=== PATIENT | male | born 1955 | race Caucasian/White ===

== ENCOUNTER 2018-12-28 13:06 | Inpatient (IN) | payer BC, SELFPAY ==
[2018-12-28 13:30] LABS: #Lymphocytes 0.5 thou/uL (1.20-3.40); #Monocytes 0.2 thou/uL (0.11-0.59); #Neutrophils 6.9 thou/uL (1.40-6.50); %Basophils 0.5 % (0.0-1.0); %Eosinophils 0.3 % (0.0-10.0); %Lymphocytes 5.9 % (21.0-51.0); %Monocytes 3.1 % (0.0-10.0); %Neutrophils 90.3 % (42.0-75.0); Hemoglobin 16.5 g/dL (14.0-18.0); Mean Corpuscular HGB CONC 34.6 g/dL (32.0-36.0); Mean Corpuscular Hemoglobin 32.2 pg (27.0-31.0); Mean Corpuscular Volume 92.8 fL (78.0-98.0); Mean Platelet Volume 9.5 fL (7.4-10.4); Platelet Count 137 thou/uL (130-400); RBC Distribution Width 12.6 % (11.5-14.5); Red Blood Cell (RBC) Count 5.12 mill/uL (4.70-6.10); White Blood Cell (WBC) Count 7.6 thou/uL (4.8-10.8)
[2018-12-28 13:39] LABS: PTT 26.3 SEC (22.9-36.1); Prothrombin Time 13.6 SEC (12.0-14.7)
[2018-12-28 13:47] LABS: ALT (SGPT) 29 U/L (8-55); AST (SGOT) 21 U/L (5-34); Albumin 4.4 g/dL (3.4-4.8); Alkaline Phosphatase 103 U/L (40-150); Anion Gap 17 mmol/L (10-20); BUN (Urea Nitrogen) 12 mg/dL (8.4-25.7); CK (CPK) 135 U/L (30-200); Calc. Creatinine Clearance 0 mL/min (70-130); Calcium 9.8 mg/dL (7.8-10.44); Carbon Dioxide 22 mmol/L (23-31); Chloride 101 mmol/L (98-107); Estimated GFR-MDRD 80; Globulin 2.9 g/dL (2.4-3.5); Glucose 152 mg/dL (80-115); Potassium 4.1 mmol/L (3.5-5.1); Protein, Total 7.3 g/dL (5.8-8.1); Sodium 136 mmol/L (136-145)
--- NOTE | 2018-12-28 14:10 | PDOC.FPRHP ---
- History of Present Illness Chief Complaint: right sided weakness and left facial paresthesias History of Present Illness: The patient is a 63YOM with no significant PMH who presented to the ED via EMS with a CC of right-sided weakness that began around 00:00 today. Per the patient , he awoke from his sleep and states that he "didn't feel quite right." He says that he could not move well and felt numb on his left side but drifted back off to sleep. Upon waking up later that morning he reported persistent weakness, worse on his right side and was unable to get out of bed so he decided to call 911 around 0830. The ambulance arrived around 0900 and took him straight to the [place] ED. In [place], the patient was given full dose ASA & had a CTA of his head and neck that showed what appeared to be a chronic left ICA occlusion. He was then transferred to the [facility] ED for further evaluation and treatment for a suspected acute CVA. Per the patient he has never had similar symptoms prior to this episode today. He endorsed a slight headache and decreased vision in his left eye that he stated had improved since his initial onset of symptoms. He denied any associated dysarthria, nausea, decreased hearing or chest pain. ED Course: The patient was given full dose ASA in the [place] ED. - Allergies/Adverse Reactions Allergies Allergy/AdvReac Type Severity Reaction Status Date / Time No Known Allergies Allergy Verified 12/28/18 17:34 - Home Medications Medication Instructions Recorded Confirmed Type Allopurinol 300 mg PO DAILY 12/28/18 12/28/18 History Venlafaxine HCl [Venlafaxine HCl 150 mg PO DAILY 12/28/18 12/28/18 History ER] - History PMHx: gout & depression PSHx: abdominal hernia repair FHx: Mother has an ischemic CVA @ age 69. Social: No h/o tobacco or drug use. Endorses drinking about 6 beers/day on average. Last drink was last night. Lives at home with and daughter. - Review of Systems General: denies: fever/chills, weight/appetite/sleep changes Eyes: reports: vision changes. denies: eye pain ENT: denies: nasal congestion, rhinorrhea Respiratory: denies: cough, shortness of breath Cardiovascular: denies: chest pain, palpitation Gastrointestinal: denies: nausea, vomiting, diarrhea, constipation, abdominal pain Genitourinary: denies: incontinence, dysuria Skin: denies: rashes, lesions Musculoskeletal: denies: pain, swelling Neurological: reports: numbness, weakness Psychological: reports: depression. denies: anxiety - Vital signs BP: 155/99 HR: 76 RR: 17 Tmax: 98.6F Pox: 96% on RA Wt: 108 kg - Physical Exam Constitutional: NAD, awake, alert and oriented, well developed HEENT: normocephalic and atraumatic, PERRLA, EOMI, grossly normal vision, grossly normal hearing, MMM, oropharynx clear Neck: supple, FROM Heart: RRR, normal S1/S2, pulses present, no edema Lungs: CTAB, no respiratory distress, good air movement, no rales/rhonchi, no wheezing Abdomen: soft, non-tender, bowel sounds present, no masses/distention Musculoskeletal: normal structure, other (decreased ROM in R extremities) Neurological: other (normal sensation and proprioception intact; unable to perform [id number] on R 2/2 ~3/5 stregth in extremities but 4/5 with hand gamemaster and foot extension on the R with 5/5 strength on the left throughout; no facial droop or dysarthria noted but decreased sensation to light touch in left V2 distribution with intact sensation otherwise throughout.) Skin: no rash/lesions, good turgor, no jaundice Heme/Lymphatic: no unusual bruising or bleeding, no purpura Psychiatric: normal mood and affect, good judgment and insight, intact recent and remote memory FMR H&P: Results - Labs Result Diagrams: 12/28/18 13:15 12/28/18 13:15 Lab results: WBC 7.6 thou/uL (4.8-10.8) 12/28/18 13:15 Hgb 16.5 g/dL (14.0-18.0) 12/28/18 13:15 Hct 47.5 % (42.0-52.0) 12/28/18 13:15 MCV 92.8 fL (78.0-98.0) 12/28/18 13:15 Plt Count 137 thou/uL (130-400) 12/28/18 13:15 Neutrophils % 90.3 % (42.0-75.0) H 12/28/18 13:15 Sodium 136 mmol/L (136-145) 12/28/18 13:15 Potassium 4.1 mmol/L (3.5-5.1) 12/28/18 13:15 Chloride 101 mmol/L (98-107) 12/28/18 13:15 Carbon Dioxide 22 mmol/L (23-31) L 12/28/18 13:15 BUN 12 mg/dL (8.4-25.7) 12/28/18 13:15 Creatinine 0.96 mg/dL (0.7-1.3) 12/28/18 13:15 Glucose 152 mg/dL (80-115) H 12/28/18 13:15 Calcium 9.8 mg/dL (7.8-10.44) 12/28/18 13:15 Total Bilirubin 1.0 mg/dL (0.2-1.2) 12/28/18 13:15 AST 21 U/L (5-34) 12/28/18 13:15 ALT 29 U/L (8-55) 12/28/18 13:15 Alkaline Phosphatase 103 U/L (40-150) 12/28/18 13:15 Creatine Kinase 135 U/L (30-200) 12/28/18 13:15 Serum Total Protein 7.3 g/dL (5.8-8.1) 12/28/18 13:15 Albumin 4.4 g/dL (3.4-4.8) 12/28/18 13:15 - Radiology Interpretation CT scan - head Status: report reviewed by me (CT brain: tiny R basal ganglia with area of infarction seen; tiny hyperdensity in the R & L MCAs (clot vs. calcifications)) Other Additional comment: CTA head & neck: Proximal L ICA occlusion FMR H&P: A/P - Problem List (1) Ischemic cerebrovascular accident (CVA) Current Visit: Yes Status: Acute Code(s): I63.9 - CEREBRAL INFARCTION, UNSPECIFIED (2) HTN (hypertension) Current Visit: Yes Status: Acute Code(s): I10 - ESSENTIAL (PRIMARY) HYPERTENSION (3) Depression Current Visit: Yes Status: Acute Code(s): F32.9 - MAJOR DEPRESSIVE DISORDER , SINGLE EPISODE, UNSPECIFIED (4) Gout Current Visit: Yes Status: Acute Code(s): M10.9 - GOUT, UNSPECIFIED - Plan 63YOM with no significant PMH who presented to the ED as a transfer from [place] after presenting there with acute onset R-sided weakness that began at ~00:00 on the date of presentation. Suspected acute ischemic CVA: - Per the ER physician's handoff, patient's CT angio of the head and neck at [place] showed what appeared to be a chronic L ICA occlusion which is more than likely the source of the patient's symptoms. Unfortunately, patient was outside window for TPA but was given full dose ASA at outside ED. - Will proceed with routine ischemic CVA care and allow permissive HTN for first 24 hours from onset of symptoms. Will have PRN labetalol and hydralazine for SBP >220. Will continue to monitor pressures closely. - Will obtain an MRI & consult neurology in the AM. ER touched based with Neurosurgery who stated no need for any surgical intervention. Will therefore optimize medical therapy. - Will order a TTE as well to assess for cardiac etiology of possible CVA as well. - Will also get an AM FLP & A1c for risk stratification but start on QD ASA & Statin now. - PT/OT and ST consulted as well as CM for likely need for rehab placement. HTN: - SBP in the 150s in the ED. Patient likely has undiagnosed HTN. - Will allow permissive HTN until the morning after which the patient will be started on a PO BP regimen with a goal BP of <130/80. Gout: - Will resume home meds. Depression: - Will resume home meds. EtOH Use: - Patient reports drinking 6 beers/day. Last drink was yesterday. - Will order ASE protocol & continue to monitor vitals closely. Dispo: Will admit to inpatient stroke for routine medical management. Abx: None IVFs: SL GI PPx: None DVT PPx: Lovenox Code status: FULL CODE FMR H&P: Upper Level - Pertinent history 63M seen here as a transfer for ischemic stroke. He last felt normal at approximately 0100 today and it was more then 6 hours before seen in ER. Prior to transfer, neurosurgery was consulted and felt that he was outside window for treatment. He had right sided weakness that is still ongoing. CTA shows left ICA occlusion. CT without contrast showed bilat dense middle cerebral arteries that may represent calcification vs acute clot. Physical exam: Gen: NAD, awake, well developed HEENT: Normocephalic, atramatic Heart: RRR, no m/g/r, or carotid bruit Lung: CTA bilat MSK: Normal structure Neuro: Sensation/proprioception intact in extremeties. Unable to do finger to nose in R arm, 4/5 strength in right arm/leg. No facial droop. Decrease sensation in left V2 distribution. A/P: Acute Stroke - Likely embolic stroke. Non contrast suggest possible occlusion in MCA distrubtation but does not show up on CTA. - Plan, MRI tomorrow. Neuro consult. Risk management, start patient on statin and get lipid panel. Start patient on aspirin. Obtain echocardiogram. Tele monitory for dysrythmia. Start process for dispo to rehab and start rehab/ screening here. Permissive HTN Alcohol abuse - Per patient report of 6 alcoholic drink a day - Plan, ASE protocol. Check CMP/CBC. Console cessation. Depression - Aware - Will resume venlafaxine Gout - Aware. Not having an attack at moment - Continue allopurinol. - Plan Date/Time: 12/28/18 1410 I, [Cedric Cotto], have evaluated this patient and agree with findings/plan as outlined by network internship resident. Pertinent changes/additions are listed here. Addendum - Attending - Attending Attestation Date/Time: 12/28/18 3538 I personally evaluated the patient and discussed the management with Dr. Del Real. I agree with the History, Examination, Assessment and Plan documented above with any addition or exceptions noted below. The patient initially noticed right sided weakness and not feeling well around midnight but fell back asleep. When he awoke this morning he couldn't get out of bed. EMS was called and pt was taken to [place] ER. He was outside the window for tpa. Pt is admitted for acute cva. Will get mri in the morning. Consult neurology, therapy, case management. Check routine labs. Pt with regular alcohol use will place on ase protocol.
[2018-12-28] MEDS ORDERED: Acetaminophen 325 MG TAB PO PRN (14:45)
[2018-12-28] MEDS ORDERED: hydrALAZINE 20 MG/ML VIAL SLOW IVP PRN (14:45)
[2018-12-28] MEDS ORDERED: Ondansetron ODT 4 MG TAB PO PRN (14:45)
[2018-12-28] MEDS ORDERED: Labetalol HCl 100 MG/20 ML VIAL SLOW IVP PRN (14:45)
[2018-12-28 17:28] VITALS: BMI 28.5
[2018-12-28] MEDS ORDERED: Lorazepam 2 MG/ML VIAL SLOW IVP SCH (19:15)
[2018-12-28] MEDS ORDERED: Lorazepam 2 MG/ML VIAL SLOW IVP PRN (19:23)
[2018-12-28] MEDS: Atorvastatin Calcium 40 MG TAB PO SCH (21:26)
[2018-12-28] MEDS: Enoxaparin Sodium 40 MG/0.4 ML SYRINGE SC SCH (21:26)
[2018-12-29] MEDS: Cyclobenzaprine 10 MG TAB PO PRN ×2 (00:35→08:45)
[2018-12-29 05:07] LABS: Hemoglobin A1c 5.7 % (4.0-6.0)
--- NOTE | 2018-12-29 06:28 | PDOC.FM ---
- Subjective Subjective: Mr. Brizuela reports some R leg twitching overnight. The muscle relaxer helped minimally. Has continued R sided weakness. - Objective Vital Signs & Weight: Vital Signs (12 hours) Temp Pulse Resp BP BP BP Pulse Ox 12/29/18 04:00 98.2 F 76 20 143/93 H 95 12/29/18 00:17 98.2 F 74 16 152/94 H 95 12/28/18 21:37 143/90 H 12/28/18 20:00 92 L 12/28/18 19:46 98.1 F 86 21 H 143/90 H 92 L Weight Weight 106.594 kg I&O: 12/27/18 12/28/18 12/29/18 06:59 06:59 06:59 Intake Total 570 Output Total 1525 Balance -955 Result Diagrams: 12/28/18 13:15 12/28/18 13:15 Phys Exam - Physical Examination Constitutional: NAD Respiratory: no wheezing, clear to auscultation bilateral Cardiovascular: RRR, no significant murmur Gastrointestinal: soft, non-tender, positive bowel sounds Musculoskeletal: no edema 2/6 RUE, 3/6 RLE. LUE/LLE 5/5. CN exam normal Psychiatric: normal affect Skin: normal turgor Dx/Plan (1) Ischemic cerebrovascular accident (CVA) Code(s): I63.9 - CEREBRAL INFARCTION, UNSPECIFIED Status: Acute (2) Depression Code(s): F32.9 - MAJOR DEPRESSIVE DISORDER, SINGLE EPISODE, UNSPECIFIED Status : Acute (3) Gout Code(s): M10.9 - GOUT, UNSPECIFIED Status: Acute (4) HTN (hypertension) Code(s): I10 - ESSENTIAL (PRIMARY) HYPERTENSION Status: Acute - Plan Plan: 63YOM with no significant PMH who presented to the ED as a transfer from [place] after presenting there with acute onset R-sided weakness that began at ~00:00 on the date of presentation. Suspected acute ischemic CVA: - Per the ER physician's handoff, patient's CT angio of the head and neck at [place] showed chronic L ICA occlusion, outside TPA window - Pending MRI and neurology recommendations - pending echo - A1c 5.7 - continue statin - PT/OT and ST consulted as well as CM for likely need for rehab placement. HTN: - Permissive HTN over. Start amlodipine. goal BP of <130/80. Gout: - Will resume home meds. Depression: - Will resume home meds. EtOH Use: - Patient reports drinking 6 beers/day. Last drink was yesterday. - Will order ASE protocol & continue to monitor vitals closely. Dispo: Pending workup DVT PPx: Lovenox Code status: FULL CODE Addendum - Attending - Attending Attestation Date/Time: 12/29/18 1120 I personally evaluated the patient and discussed the management with Dr. Martinez. I agree with the History, Examination, Assessment and Plan documented above with any addition or exceptions noted below. Patient here for suspected R sided CVA. He continues to have fairly dense R sided deficits. Passed bedside swallow. Therapy services consulted, as has Stroke team and Neuro. MRI in progress. Can begin BP control and risk factor modification. Continue ASA at this time and high intensity statin therapy.
[2018-12-29] MEDS: Venlafaxine HCl XR 150 MG CAP PO SCH (08:44)
[2018-12-29] MEDS: Aspirin 81 mg Enteric Coated Tablet PO SCH (08:44)
[2018-12-29] MEDS: Allopurinol 300 MG TAB PO SCH (08:45)
[2018-12-29] MEDS: Amlodipine 5 MG TAB PO SCH (10:22)
--- NOTE | 2018-12-29 12:17 | MRI ---
NONCONTRAST ENHANCED MRI IMAGES OF THE BRAIN: HISTORY: Weakness. History of possible stroke. FINDINGS: Multiplanar, multisequence noncontrast-enhanced MRI images of the brain demonstrate numerous areas of decreased signal in T2 and diffusion weighted images compatible with multiple areas of cytotoxic james ma in the left frontal, left parietal lobes, and left lateral thalamus. These were compatible with m ultiple left MCA areas of acute stroke. No significant midline shift is seen. The ventricles are of normal size. Normal flow voids seen in the major intracranial vessels. IMPRESSION: Numerous areas of ryan-white junction frontal and parietal areas of stroke as well as left thalamic s troke. There is also an area of stroke involving the medial aspect of the left temporal lobe seen on axial images #11 on FLAIR weighted sequences and 37 on diffusion weighted sequences. POS: Sirisha
[2018-12-29] MEDS: Atorvastatin Calcium 40 MG TAB PO SCH (20:03)
[2018-12-29] MEDS: Enoxaparin Sodium 40 MG/0.4 ML SYRINGE SC SCH (20:03)
--- NOTE | 2018-12-29 23:24 | CON ---
DATE OF CONSULTATION: 12/29/2018 CONSULTING PHYSICIAN: Hospitalist Service. IMPRESSION: 1. Patchy left middle cerebral artery stroke resulting in right-sided weakness. 2. 100% occlusion of the left internal carotid. PLAN: 1. Aspirin 81 mg per day. 2. Low-dose statin. 3. Echocardiogram. 4. Probable outpatient rehab program. HISTORY OF PRESENT ILLNESS: Mr. Brizuela is a 63-year-old man, who developed acute right-sided weakness yesterday started in his leg, which then seem to spread to his arm, never seem to affect his speech or swallowing. He had some vision distortion yesterday, which has since resolved. He denies any past history of any neurologic or medical problems. He was not on any medications. PAST MEDICAL HISTORY: Otherwise negative. ALLERGIES: NONE. SOCIAL HISTORY: No tobacco. Positive for moderate to heavy alcohol use. FAMILY HISTORY: Noncontributory. REVIEW OF SYSTEMS: Ten system review of systems is otherwise negative. PHYSICAL EXAMINATION: GENERAL: He is a healthy-appearing middle-aged man, in no acute distress. VITAL SIGNS: Have been stable. He is afebrile. HEENT: Pupils equal. Conjunctivae clear. Oropharynx clear. NECK: Supple. EXTREMITIES: No cyanosis. NEUROLOGIC: Alert and cooperative. His speech is fluent and clear. Cranial nerves seem to be intact throughout. Motor exam showed partial antigravity strength in the right arm and leg. He had diminished fine motor control. Sensation was intact. Gait was not tested but reportedly he could stand, but required assistance. LABORATORY DATA: EKG showed a sinus rhythm. SUMMARY: A middle-aged man, who has some patchy infarcts involving the right MCA territory, be some concern for cardioembolic event based on the imaging. There is no cardiac history to suggest an etiology for this. I agree at this point, antiplatelet therapy and statin. Job ID: [id number]
--- NOTE | 2018-12-30 07:11 | PDOC.FM ---
- Subjective Subjective: Mr. Brizuela has no complaints. Says weakness is improving. - Objective MAR Reviewed: Yes Vital Signs & Weight: Vital Signs (12 hours) Temp Pulse Resp BP Pulse Ox 12/30/18 04:00 98.4 F 71 18 134/89 95 12/30/18 00:00 97.6 F 73 18 128/80 97 12/29/18 20:00 98.6 F 77 18 145/86 H 93 L Weight Weight 106.594 kg I&O: 12/29/18 12/30/18 12/31/18 06:59 06:59 06:59 Intake Total 570 580 Output Total 1525 580 Balance -955 0 Result Diagrams: 12/28/18 13:15 12/28/18 13:15 Phys Exam - Physical Examination Constitutional: NAD Respiratory: no wheezing, clear to auscultation bilateral Cardiovascular: RRR, no significant murmur Gastrointestinal: soft, non-tender Musculoskeletal: no edema 4/5 muscle strength RUE/RLE. 5/5 LUE/LLE Psychiatric: normal affect Skin: normal turgor Dx/Plan (1) Ischemic cerebrovascular accident (CVA) Code(s): I63.9 - CEREBRAL INFARCTION, UNSPECIFIED Status: Acute (2) Depression Code(s): F32.9 - MAJOR DEPRESSIVE DISORDER, SINGLE EPISODE, UNSPECIFIED Status : Acute (3) Gout Code(s): M10.9 - GOUT, UNSPECIFIED Status: Acute (4) HTN (hypertension) Code(s): I10 - ESSENTIAL (PRIMARY) HYPERTENSION Status: Acute - Plan Plan: 63YOM with no significant PMH who presented to the ED as a transfer from [place] after presenting there with acute onset R-sided weakness that began at ~00:00 on the date of presentation. Acute ischemic CVA: - Per the ER physician's handoff, patient's CT angio of the head and neck at [place] showed chronic L ICA occlusion, outside TPA window - MRI with L thalamic stroke, medial temporal lobe - neurology consulted, appreciate recommendations - echo 50-55% EF - A1c 5.7 - continue statin - PT/OT and ST consulted - consulted rehab this morning, pt unfunded and no [facility] beds available HTN: - Continue amlodipine. goal BP of <130/80. Gout: - Will resume home meds. Depression: - Will resume home meds. EtOH Use: - Patient reports drinking 6 beers/day. - Will order ASE protocol & continue to monitor vitals closely. Dispo: stable for discharge, awaiting CM assistance with discharge planning. DVT PPx: Lovenox Code status: FULL CODE
[2018-12-30] MEDS: Aspirin 81 mg Enteric Coated Tablet PO SCH (08:42)
[2018-12-30] MEDS: Amlodipine 5 MG TAB PO SCH ×2 (08:43→08:44)
[2018-12-30] MEDS: Allopurinol 300 MG TAB PO SCH (08:43)
[2018-12-30] MEDS: Venlafaxine HCl XR 150 MG CAP PO SCH (08:43)
[2018-12-30] MEDS ORDERED: Iopamidol 370 76% 100 ML VIAL ONE (13:04)
--- NOTE | 2018-12-30 13:06 | CT ---
CT Brain WO Con HISTORY: Right-sided weakness. COMPARISON: 12/28/2018 study. FINDINGS: The ventricular and cisternal system is within normal limits. There is a new area of decrea sed attenuation within the left periventricular white matter near the posterior limb of the left internal capsule. This would suggest a subacute to acute area of infarct. No hemorrhage or mass effec t. IMPRESSION: Findings compatible with a acute to subacute infarct in the left middle cerebral artery t erritory. Findings telephoned to the physician at the time of this dictation.
--- NOTE | 2018-12-30 13:25 | PRG ---
DATE OF SERVICE: 12/30/2018 Mr. Brizuela unfortunately had a stroke several days ago involving the right MCA territory. He is however making a good recovery, having no complications. He has also has been seen by Dr. Braxton, and we appreciate his input. He is currently on aspirin and statin and blood pressure control. He will be discharged today and encouraged to seek outpatient physical therapy as he has no funding for inpatient therapy. He is also encouraged to followup soon with his PCP for further management of his stroke. Job ID: [id number]
[2018-12-30] MEDS ORDERED: Clopidogrel Bisulfate 300 MG TAB PO SCH (13:30)
--- NOTE | 2018-12-30 13:42 | CT ---
CTA of the head with IV contrast and 3-D reformatted imaging. CTA of the neck with IV contrast and 3-D reformatted imaging. INDICATION: Code Green alert; lethargy with right-sided weakness; history of left MCA distribution in farcts. COMPARISON: MR of the brain dated December 29, 2018 and a CTA of the brain dated 12/28/2018 FINDINGS: CTA OF THE HEAD WITH AND WITHOUT CONTRAST: CTA OF THE BRAIN: Right ICA: There is stable mild irregularity involving the petrous segment of the right ICA. Right MCA: Patent. Right RUSSELL: Patent. ACOM: Patent. Left ICA: Previously there was reconstitution of the occluded left ICA at the level of the left prox imal cavernous segment. Now there is reconstitution at the level of the distal left cavernous segment and left supraclinoid segment. There is diminished flow evident within the left supraclinoid ICA and proximal left MCA suspicious for thrombus. Left MCA: There is diminished flow within the left M1 branch suspicious for partially occlusive thro mbus. Left RUSSELL: Patent. PCOMs: Patent. Vertebral arteries: Patent. Basilar Artery: Patent. box office clerk: Patent. Incidentals: There hypodensities involving the left thalamus and left frontal lobe consistent with t he patient's known left MCA distribution infarcts. CTA OF THE NECK WITH CONTRAST: Right CCA: Patent. Right ICA: Patent. Right Subclavian: Patent. Right Vertebral Artery: Patent. Left CCA: Patent. Left ICA: Completely occluded Left Subclavian: Patent. Left Vertebral Artery: Patent. Aerodigestive tract: Clear. Parotids/Submandibular/Thyroid glands: Normal. Lymph nodes: No pathologically enlarged lymph nodes. Lung Apices: Clear. Bones: No acute osseous abnormality. Incidentals: None. IMPRESSION: 1. Stable complete occlusion of the left ICA. There is diminished flow now present within the left gallagher praclinoid ICA and proximal left MCA suspicious for migration of thrombus. Findings called to Jazmin Del Real at 1:38 PM on December 30, 2018 2. Evolutionary changes of the patient's known left MCA distribution infarcts.
--- NOTE | 2018-12-30 13:58 | PDOC.EVN ---
Event Note - Event Note Event Note: Responded to Code Green called for acute change in NIH score. Patient is confused, unable to answer questions appropriately, slurred speech. He denied pain. Right upper extremity flaccid (did have 4/5 strength this am). Patient taken downstairs for repeat CT/CTA. Spoke with Dr. Braxton who recommended starting Plavix 300mg now and to continue on [address] showed acute to subacute infarct in L MCA. CTA showed stable complete occlusion of L ICA, diminished flow seen suspicious for migration of thrombus. Will continue to closely monitor patient.
[2018-12-30] MEDS: Enoxaparin Sodium 40 MG/0.4 ML SYRINGE SC SCH (22:09)
[2018-12-30] MEDS: Atorvastatin Calcium 40 MG TAB PO SCH (22:09)
--- NOTE | 2018-12-31 06:33 | PDOC.FM ---
- Subjective Subjective: Mr. Brizuela slept well last night. He is confused with expressive aphasia. He does not respond to questions appropriately. Commonly answers "what am I doing" . Incorrectly stated what he had for supper last night. Able to write but not speak his name. Does not know his date. - Objective MAR Reviewed: Yes Vital Signs & Weight: Vital Signs (12 hours) Temp Pulse Resp BP BP Pulse Ox 12/31/18 04:04 98.6 F 68 16 146/84 H 92 L 12/31/18 04:00 146/84 H 12/31/18 00:07 98.3 F 70 18 135/87 92 L 12/31/18 00:00 135/87 12/30/18 20:40 92 L 12/30/18 20:00 97.8 F 83 18 141/88 H 141/88 H 92 L Weight Weight 106.594 kg I&O: 12/29/18 12/30/18 12/31/18 06:59 06:59 06:59 Intake Total 570 580 480 Output Total 1525 580 390 Balance -955 0 90 Result Diagrams: 12/28/18 13:15 12/28/18 13:15 Phys Exam - Physical Examination Constitutional: NAD Respiratory: no wheezing, clear to auscultation bilateral Cardiovascular: RRR, no significant murmur Gastrointestinal: soft, non-tender, positive bowel sounds Musculoskeletal: no edema Neurological: normal sensation, moves all 4 limbs 5/5 muscle strength BUE/BLE. unable to follow all commands. CN appear to be intact. Difficulty with R finger to nose. Normal heel/zaidi b/l. Skin: normal turgor Dx/Plan (1) Ischemic cerebrovascular accident (CVA) Code(s): I63.9 - CEREBRAL INFARCTION, UNSPECIFIED Status: Acute (2) Depression Code(s): F32.9 - MAJOR DEPRESSIVE DISORDER, SINGLE EPISODE, UNSPECIFIED Status : Acute (3) Gout Code(s): M10.9 - GOUT, UNSPECIFIED Status: Acute (4) HTN (hypertension) Code(s): I10 - ESSENTIAL (PRIMARY) HYPERTENSION Status: Acute - Plan Plan: 63YOM with no significant PMH who presented to the ED as a transfer from [place] after presenting there with acute onset R-sided weakness that began at ~00:00 on the date of presentation. Acute ischemic CVA: - Per the ER physician's handoff, patient's CT angio of the head and neck at [place] showed chronic L ICA occlusion, outside TPA window - MRI with L thalamic stroke, medial temporal lobe - 12/30 had code green, another acute stroke event. CT/CTA performed that showed worsening of lesions. - neurology consulted, appreciate recommendations - echo 50-55% EF - A1c 5.7 - continue high intensity statin, aspirin, plavix - PT/OT and ST consulted - consulted rehab, pt unfunded and no [facility] beds available HTN: - Continue amlodipine, increased 5->10mg. goal BP of <130/80. Gout: - Will resume home meds. Depression: - Will resume home meds. EtOH Use: - Patient reports drinking 6 beers/day. - ASE protocol, has not required Dispo: pending any further neuro recs, could possibly be discharged today. Await recs from . Family interested in going to [facility] in [place]. DVT PPx: Lovenox Code status: FULL CODE Addendum - Attending - Attending Attestation Date/Time: 12/31/18 2220 I personally evaluated the patient and discussed the management with Dr. Martinez. I agree with the History, Examination, Assessment and Plan documented above with any addition or exceptions noted below. Patient here with acute CVA with R sided deficits that worsened acutely yesterday. Reimaging showed another new infarct and migration of his thrombus. He is now on ASA and Plavix therapy. Will discuss case with Neurology and see if interventional stroke team could offer any therapy. Continue therapy services and stroke team consult. Speech somewhat better while we were in room this morning but still has some issues with word finding. Continue BP control and statin therapy.
[2018-12-31] MEDS: Clopidogrel Bisulfate 75 MG TAB PO SCH (08:06)
[2018-12-31] MEDS: Allopurinol 300 MG TAB PO SCH (08:06)
[2018-12-31] MEDS: Aspirin 81 mg Enteric Coated Tablet PO SCH (08:06)
[2018-12-31] MEDS: Amlodipine 10 MG TAB PO SCH (08:07)
[2018-12-31] MEDS: Venlafaxine HCl XR 150 MG CAP PO SCH (08:08)
--- NOTE | 2018-12-31 13:29 | CT ---
CTA of the head with IV contrast and 3-D reformatted imaging. CTA of the neck with IV contrast and 3-D reformatted imaging. INDICATION: Code Green alert; lethargy with right-sided weakness; history of left MCA distribution in farcts. COMPARISON: MR of the brain dated December 29, 2018 and a CTA of the brain dated 12/28/2018 FINDINGS: CTA OF THE HEAD WITH AND WITHOUT CONTRAST: CTA OF THE BRAIN: Right ICA: There is stable mild irregularity involving the petrous segment of the right ICA. Right MCA: Patent. Right RUSSELL: Patent. ACOM: Patent. Left ICA: Previously there was reconstitution of the occluded left ICA at the level of the left prox imal cavernous segment. Now there is reconstitution at the level of the distal left cavernous segment and left supraclinoid segment. There is diminished flow evident within the left supraclinoid ICA and proximal left MCA suspicious for thrombus. Left MCA: There is diminished flow within the left M1 branch suspicious for partially occlusive thro mbus. Left RUSSELL: Patent. PCOMs: Patent. Vertebral arteries: Patent. Basilar Artery: Patent. enterprise application architect: Patent. Incidentals: There hypodensities involving the left thalamus and left frontal lobe consistent with t he patient's known left MCA distribution infarcts. CTA OF THE NECK WITH CONTRAST: Right CCA: Patent. Right ICA: Patent. Right Subclavian: Patent. Right Vertebral Artery: Patent. Left CCA: Patent. Left ICA: Completely occluded Left Subclavian: Patent. Left Vertebral Artery: Patent. Aerodigestive tract: Clear. Parotids/Submandibular/Thyroid glands: Normal. Lymph nodes: No pathologically enlarged lymph nodes. Lung Apices: Clear. Bones: No acute osseous abnormality. Incidentals: None. IMPRESSION: 1. Stable complete occlusion of the left ICA. There is diminished flow now present within the left gallagher praclinoid ICA and proximal left MCA suspicious for migration of thrombus. Findings called to Jazmin Del Real at 1:38 PM on December 30, 2018 2. Evolutionary changes of the patient's known left MCA distribution infarcts. Transcribed Date/Time: 12/31/2018 1:29 PM
[2018-12-31] MEDS: Atorvastatin Calcium 40 MG TAB PO SCH (21:45)
[2018-12-31] MEDS: Enoxaparin Sodium 40 MG/0.4 ML SYRINGE SC SCH (21:45)
--- NOTE | 2019-01-01 06:31 | PDOC.FM ---
- Subjective Subjective: Mr. Brizuela resting in bed this morning. Continues to have difficulty with word finding, does not answer all questions appropriately. Cannot tell you his name or where we are. Yesterday discussed case with neurosurgery team, Tima Blanchard/Dr. Traore. Did not believe any interventional procedure possible. Additionally discussed case with Dr. Braxton. Plan to continue medical management with no further recommendations and believes pt could be otherwise ready for discharge. - Objective Vital Signs & Weight: Vital Signs (12 hours) Temp Pulse Resp BP BP Pulse Ox 01/01/19 04:00 97.4 F L 68 16 125/81 125/81 92 L 01/01/19 00:00 97.5 F L 77 16 125/83 125/83 92 L 12/31/18 20:30 97 12/31/18 20:00 97.4 F L 78 16 121/86 121/86 97 Weight Weight 106.594 kg I&O: 12/30/18 12/31/18 01/01/19 06:59 06:59 06:59 Intake Total 580 680 950 Output Total 580 790 600 Balance 0 -110 350 Result Diagrams: 12/28/18 13:15 12/28/18 13:15 Phys Exam - Physical Examination Constitutional: NAD HEENT: moist MMs Respiratory: no wheezing, clear to auscultation bilateral Cardiovascular: RRR, no significant murmur Gastrointestinal: soft, non-tender, positive bowel sounds Musculoskeletal: no edema, pulses present Neurological: moves all 4 limbs 5/5 strength all extremities. Unable to fully asses CN as pt unable to follow all commands. No notable deficit though. Skin: normal turgor Dx/Plan (1) Ischemic cerebrovascular accident (CVA) Code(s): I63.9 - CEREBRAL INFARCTION, UNSPECIFIED Status: Acute (2) Depression Code(s): F32.9 - MAJOR DEPRESSIVE DISORDER, SINGLE EPISODE, UNSPECIFIED Status : Acute (3) Gout Code(s): M10.9 - GOUT, UNSPECIFIED Status: Acute (4) HTN (hypertension) Code(s): I10 - ESSENTIAL (PRIMARY) HYPERTENSION Status: Acute - Plan Plan: 63YOM with no significant PMH who presented to the ED as a transfer from [place] after presenting there with acute onset R-sided weakness that began at ~00:00 on the date of presentation. Acute ischemic CVA: - CT angio of the head and neck at [place] showed chronic L ICA occlusion, outside TPA window - MRI with L thalamic stroke, medial temporal lobe - 12/30 had code green, another acute stroke event. CT/CTA performed that showed migration of thrombus - neurology consulted, appreciate recommendations. Medical management optimization. - echo 50-55% EF - A1c 5.7 - continue high intensity statin, aspirin, plavix - PT/OT and ST consulted. ST unable to reevaluate yesterday. - consulted rehab, pt unfunded and no [facility] beds available per rehab account services representative HTN: - Continue amlodipine, increased 5->10mg. goal BP of <130/80. Gout: - Will resume home meds. Depression: - Will resume home meds. EtOH Use: - Patient reports drinking 6 beers/day. - ASE protocol, has not required Dispo: ST unable to reevaluate yet. Otherwise stable for discharge. Awaiting CM assistance with placement vs outpt therapy. DVT PPx: Lovenox Code status: FULL CODE Addendum - Attending - Attending Attestation Date/Time: 01/01/19 1104 I personally evaluated the patient and discussed the management with Dr. Martinez. I agree with the History, Examination, Assessment and Plan documented above with any addition or exceptions noted below. Patient here with acute CVA but has some improvement in RUE strength. Continues to have issues with word finding and aphasia. Awaiting re-eval by speech therapy. He continues on BP control, statin, and ASA/Plavix per neuro recs. Overall stable for discharge but awaiting decision of placement, [facility] versus home with outpatient therapy. CM to meet with family to discuss further.
[2019-01-01] MEDS: Venlafaxine HCl XR 150 MG CAP PO SCH (09:37)
[2019-01-01] MEDS: Aspirin 81 mg Enteric Coated Tablet PO SCH (09:37)
[2019-01-01] MEDS: Amlodipine 10 MG TAB PO SCH (09:38)
[2019-01-01] MEDS: Clopidogrel Bisulfate 75 MG TAB PO SCH (09:38)
[2019-01-01] MEDS: Allopurinol 300 MG TAB PO SCH (09:39)
[2019-01-01] MEDS: Atorvastatin Calcium 40 MG TAB PO SCH (20:24)
[2019-01-01] MEDS: Enoxaparin Sodium 40 MG/0.4 ML SYRINGE SC SCH (20:24)
--- NOTE | 2019-01-02 07:09 | PDOC.FM ---
- Subjective Subjective: Mr. Brizuela resting in bed. Denies pain. Notes time on wall clock. Will make some full sentences, says that he watched a game last night. However, will not say his name or date. No change compared to prior day. - Objective MAR Reviewed: Yes Vital Signs & Weight: Vital Signs (12 hours) Temp Pulse Resp BP BP Pulse Ox 01/02/19 04:00 98.7 F 81 18 133/84 133/84 96 01/02/19 00:00 97.5 F L 83 19 116/82 116/82 95 01/01/19 20:20 96 01/01/19 20:00 97.4 F L 86 19 135/93 H 135/93 H 96 Weight Weight 106.594 kg I&O: 01/01/19 01/02/19 01/03/19 06:59 06:59 06:59 Intake Total 950 1137 Output Total 600 450 Balance 350 687 Result Diagrams: 12/28/18 13:15 12/28/18 13:15 Phys Exam - Physical Examination Constitutional: NAD Respiratory: no wheezing, clear to auscultation bilateral Cardiovascular: RRR, no significant murmur Gastrointestinal: soft, non-tender, positive bowel sounds Musculoskeletal: no edema Neurological: normal sensation, moves all 4 limbs 5/5 strength all extremities. Will not follow all facial motor commands. All CN appear intact. Psychiatric: normal affect Skin: normal turgor Dx/Plan (1) Ischemic cerebrovascular accident (CVA) Code(s): I63.9 - CEREBRAL INFARCTION, UNSPECIFIED Status: Acute (2) Depression Code(s): F32.9 - MAJOR DEPRESSIVE DISORDER, SINGLE EPISODE, UNSPECIFIED Status : Acute (3) Gout Code(s): M10.9 - GOUT, UNSPECIFIED Status: Acute (4) HTN (hypertension) Code(s): I10 - ESSENTIAL (PRIMARY) HYPERTENSION Status: Acute - Plan Plan: 63YOM with no significant PMH who presented to the ED as a transfer from [place] after presenting there with acute onset R-sided weakness that began at ~00:00 on the date of presentation. Acute ischemic CVA: - CT angio of the head and neck at [place] showed chronic L ICA occlusion, outside TPA window - MRI with L thalamic stroke, medial temporal lobe - 12/30 had code green, another acute stroke event. CT/CTA performed that showed migration of thrombus - neurology consulted, appreciate recommendations. Medical management optimization. - echo 50-55% EF - A1c 5.7 - continue high intensity statin, aspirin, plavix - PT/OT and ST consulted. HTN: - Continue amlodipine, increased 5->10mg. goal BP of <130/80. Gout: - Will resume home meds. Depression: - Will resume home meds. EtOH Use: - Patient reports drinking 6 beers/day. - ASE protocol, has not required Dispo: Discharge this morning to inpatient rehab DVT PPx: Lovenox Code status: FULL CODE Addendum - Attending - Attending Attestation Date/Time: 01/02/19 7609 I personally evaluated the patient and discussed the management with Dr. Martinez. I agree with the History, Examination, Assessment and Plan documented above with any addition or exceptions noted below. Patient stable for discharge. He will be going to inpatient rehab for a few days and we will work to get him there this morning. Continue ASA, Plavix, statin, and BP control. Will need follow up outpt with PCP and neurology.
[2019-01-02 07:56] VITALS: BP 114/90; TEMP 98.9
[2019-01-02] MEDS: Venlafaxine HCl XR 150 MG CAP PO SCH (08:56)
[2019-01-02] MEDS: Allopurinol 300 MG TAB PO SCH (08:56)
[2019-01-02] MEDS: Clopidogrel Bisulfate 75 MG TAB PO SCH (08:56)
[2019-01-02] MEDS: Aspirin 81 mg Enteric Coated Tablet PO SCH (08:56)
[2019-01-02] MEDS: Amlodipine 10 MG TAB PO SCH (08:56)
--- NOTE | 2019-01-03 00:59 | DIS ---
DATE OF ADMISSION: 12/28/2018 DATE OF DISCHARGE: 01/02/2019 RESIDENT: Ambar Martinez DO ADMITTING ATTENDING: Yaquelin Roach MD DISCHARGE ATTENDING: Darrian Lundy MD CONSULTS: 1. Neurology, Dr. Braxton. 2. Physical Therapy, Occupational Therapy, and Speech Therapy. 3. Stroke team. PROCEDURES PERFORMED: 1. 12/29/2018, brain MRI showed numerous areas of ryan-white junction frontal and parietal areas of stroke as well as left thalamic stroke. There is also an area of stroke involving the medial aspect of left temporal lobe. 2. 12/29/2018, echocardiogram showed ejection fraction 50% to 55%, left atrium mildly dilated, mild tricuspid regurgitation, mild mitral regurgitation. 3. 12/30/2018, CTA showed stable complete occlusion of left ICA. Diminished flow now present within the left supraclinoid ICA and proximal left MCA suspicious for migration of thrombus. Evolutionary changes of the patient's known left MCA distribution infarcts. 4. 12/30/2018, brain CT showed findings compatible with acute to subacute infarct in the left middle cerebral artery territory. PRIMARY DIAGNOSIS: Acute ischemic cerebrovascular accident. SECONDARY DIAGNOSES: 1. Hypertension. 2. Gout. 3. Depression. 4. Alcohol use. DISCHARGE MEDICATIONS: 1. Allopurinol 300 mg p.o. daily. 2. Venlafaxine 150 mg p.o. daily. 3. Amlodipine 10 mg p.o. daily. 4. Aspirin 81 mg p.o. daily. 5. Atorvastatin 80 mg p.o. at bedtime. 6. Clopidogrel 75 mg p.o. daily. HISTORY OF PRESENT ILLNESS: A 63-year-old male with no significant past medical history, presented to the emergency department via EMS for right-sided weakness. He awoke from his sleep with persistent right-sided weakness and was taken first to the [facility]. CTA at that time showed chronic left ICA occlusion. He was then transferred to [facility] for further evaluation and treatment. He was admitted to the Stroke floor and MRI was ordered, Neurology consulted. The ER did touch base with Neurosurgery, who stated no need for any surgical intervention. Workup as noted above. The patient was started on aspirin and statin. Hemoglobin A1c 5.7. Triglycerides 183, total cholesterol 202, LDL 115, HDL 50. Other labs essentially unremarkable. The patient had regained some function and was possibly awaiting discharge. However, on 12/30/2018, a hal renee was called for acute change in NIH score. At that time, he had a flaccid right upper extremity and speech deficits. He was taken for immediate repeat CT and CTA. These findings were noted as above. Dr. Braxton as well as Neurosurgery, this was also discussed with his new acute finding. Plavix was started in order to maximally optimize medical therapy. At the time of discharge, the patient had 5/5 motor strength in all extremities. He, however, still continued to have difficulty with word finding. He would not answer the question of what his name is nor his date or where he was. He apparently would have conversations with his family though about bills that need to be done, the rain outside, etc. Additionally, he would follow majority of motor commands, but would be unable to follow all facial motor commands. The patient was unfunded and family elected to self-pay for inpatient rehab. DISPOSITION: Stable. DISCHARGE INSTRUCTIONS: 1. Location: Inpatient rehab. 2. Diet: Heart healthy. 3. Activity: As tolerated. 4. Followup: To establish with new PCP in 7 days. Job ID: [id number]
== END 2019-01-02 11:09 | DRG 65 ==
LOC: ERS 13:06 → 2SE 14:03
PROVIDERS: ADMIT Family Medicine; ATTEND Family Medicine
DX: I63.311 Cerebral infarction due to thrombosis of right middle cerebral artery (principal); G81.91 Hemiplegia, unspecified affecting right dominant side; I10 Essential (primary) hypertension; M10.9 Gout, unspecified; F32.9 Major depressive disorder, single episode, unspecified; R29.707 NIHSS score 7; I65.22 Occlusion and stenosis of left carotid artery; Z79.899 Other long term (current) drug therapy; Z72.89 Other problems related to lifestyle
CPT/HCPCS: 36415; 36416; 70450; 70496; 70498; 70551; 80053; 80061; 82550; 83036; 84484; 85025; 85610; 85730; 90471; 90732; 93005; 93010; 93306; G0009; J1650; Q9967

== ENCOUNTER 2019-02-08 20:08 | Observation (INO) | payer SELFPAY ==
[2019-02-08 22:50] VITALS: BMI 25.9
[2019-02-09] MEDS ORDERED: hydrALAZINE 20 MG/ML VIAL SLOW IVP PRN (03:31)
[2019-02-09] MEDS ORDERED: Labetalol HCl 100 MG/20 ML VIAL SLOW IVP PRN (03:31)
[2019-02-09] MEDS ORDERED: Sodium Chloride 0.9% 1,000 ML IV SCH (03:31)
[2019-02-09] MEDS ORDERED: Ondansetron ODT 4 MG TAB PO PRN (03:31)
[2019-02-09] MEDS ORDERED: Ondansetron PF 4 MG/2 ML Vial IVP PRN (03:31)
[2019-02-09] MEDS: Meclizine HCl 25 MG TAB PO SCH ×3 (06:05→21:11)
--- NOTE | 2019-02-09 08:19 | HP ---
PRIMARY CARE PROVIDER: [facility]. CHIEF COMPLAINT: Difficulty with speech and confusion. HISTORY OF PRESENT ILLNESS: This is a 63-year-old male, who presented to [facility] in transfer from [facility] Department with questionable worsening aphasia and confusion. The patient with significant history of recent left MCA distribution CVA in December 2018, treated with dual antiplatelet therapy including aspirin and Plavix, discharged home on 01/02/2019. The patient states he has been compliant with his medication regimen and denied any recent trauma or injury. The patient apparently had difficulty with word finding as well as vertiginous symptoms. The patient was evaluated in the [facility], undergoing CT imaging of the brain showing no acute intracranial process. The patient was referred to [facility] for further evaluation. PAST MEDICAL HISTORY: 1. Hyperlipidemia. 2. Hypertension. 3. Left MCA distribution CVA with residual expressive aphasia. 4. 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 5. Gout. 6. Alcohol use. 7. Depression. PAST SURGICAL HISTORY: Status post abdominal hernia repair. CURRENT MEDICATIONS: 1. Allopurinol 300 mg p.o. daily. 2. Effexor ER 150 mg p.o. daily. 3. Norvasc 10 mg p.o. daily. 4. Enteric-coated aspirin 81 mg p.o. daily. 5. Lipitor 80 mg p.o. at bedtime. 6. Plavix 75 mg p.o. daily. ALLERGIES: NO KNOWN DRUG ALLERGIES. FAMILY HISTORY: Positive for CVA and hypertension. SOCIAL HISTORY: The patient resides in [place], [place]. Self-employed. The patient drinks alcohol daily. No tobacco or illicit drug use. REVIEW OF SYSTEMS: CONSTITUTIONAL: Negative for weight loss or gain, ability to conduct usual activities. SKIN: Negative for rash, itching. EYES: Negative for double vision, pain. ENT/MOUTH: Negative for nose bleeding, neck stiffness, pain, tenderness. CARDIOVASCULAR: Negative for palpitations, dyspnea on exertion, orthopnea. RESPIRATORY: Negative for shortness of breath, wheezing, cough, hemoptysis, fever or night sweats. GASTROINTESTINAL: Negative for poor appetite, abdominal pain, heartburn, nausea, vomiting, constipation, or diarrhea. GENITOURINARY: Negative for urgency, frequency, dysuria, nocturia. MUSCULOSKELETAL: Negative for pain, swelling. NEUROLOGIC/PSYCHIATRIC: Negative for anxiety, depression. ALLERGY/IMMUNOLOGIC: Negative for skin rash, bleeding tendency. Otherwise, negative except as stated per HPI. PHYSICAL EXAMINATION: VITAL SIGNS: On admission. Blood pressure 125/73, pulse 85, respiratory rate 18, temperature 99.5 degrees Fahrenheit, O2 saturation 97% on room air. GENERAL APPEARANCE: This is a 63-year-old male, alert, responsive, with expressive aphasia, in no acute distress. HEENT: Pupils are equal, round, reactive to light and accommodation. Extraocular muscles are intact. No scleral icterus. No conjunctival injection. Nares are patent. OP is clear. NECK: Supple. No cervical adenopathy. No thyromegaly. No carotid bruits. No JVD appreciated. Cervical spine with full active and passive range of motion. No meningeal signs noted. CHEST: Lungs are clear to auscultation bilaterally. CARDIOVASCULAR: S1, S2 without noted murmur, rub, or gallop. ABDOMEN: Rounded, soft, nontender, and nondistended. Bowel sounds are positive in all 4 quadrants. There is no hepatosplenomegaly. No abdominal bruits. No rebound or guarding appreciated. EXTREMITIES: Warm and dry with fair turgor. No clubbing, cyanosis, or asymmetric edema appreciated. Pulses are palpable distally at the dorsalis pedis, posterior tibial, and popliteal arteries bilaterally. Capillary refill is less than 2 seconds. NEUROLOGIC: Expressive aphasia noted. No unilateral focal deficits appreciated. The patient not observed ambulatory during this exam. PERTINENT LAB AND X-RAY FINDINGS: Sodium 139, potassium 3.5, chloride 104, CO2 of 24, BUN 12, creatinine 0.97, glucose 137. Urinalysis negative. Total bilirubin 1.9, AST 33, ALT of 73. Troponin negative x1. CBC showed a white blood cell count of 13.6, hemoglobin 14.7, hematocrit 43, platelet count 142. CT of the brain without contrast dated 02/08/2019, showed no acute intracranial process. Chronic lacunar infarcts in the left basal ganglia and left thalamic region noted. Suspected encephalomalacia in the anterior left temporal lobe. Portable chest x-ray dated 02/08/2019, showed no acute cardiopulmonary process. EKG dated 02/08/2019, by my interpretation, shows sinus mechanism with heart rates in the 80s. Attenuated R-waves noted in the precordial leads. Normal axis. No acute ST-T wave changes appreciated. ASSESSMENT/PLAN: 1. Expressive aphasia. Recent cerebrovascular accident in the left middle cerebral artery distribution with expressive aphasia, 12/2018. No specific evidence of progression of previous cerebrovascular accident by CT imaging of the brain. We will obtain MRI imaging to confirm stable subacute cerebrovascular accident. Continue aspirin 81 mg daily and Plavix 75 mg daily. 2. Left middle cerebral artery cerebrovascular accident, subacute. See #1 above. Continue dual antiplatelet therapy. Continue Lipitor 80 mg at bedtime. 3. Hypertension. Resume home blood pressure regimen and monitor clinical response. 4. Left internal carotid artery occlusion. Chronic and stable. Continue dual antiplatelet therapy. 5. Prophylaxis. SCDs while in bed. Pepcid 20 mg p.o. b.i.d. General stroke protocol. 6. Code status is full. Surrogate medical decision maker is the patient's spouse. Job ID: [id number]
[2019-02-09] MEDS: Amlodipine 10 MG TAB PO SCH (08:35)
[2019-02-09] MEDS: Allopurinol 300 MG TAB PO SCH (08:35)
[2019-02-09] MEDS: Famotidine 20 MG TAB PO SCH ×2 (08:35→20:18)
[2019-02-09] MEDS: Venlafaxine HCl XR 150 MG CAP PO SCH (08:35)
[2019-02-09] MEDS: Aspirin 81 mg Enteric Coated Tablet PO SCH (08:35)
[2019-02-09] MEDS ORDERED: Clopidogrel Bisulfate 75 MG TAB PO SCH (09:00)
--- NOTE | 2019-02-09 11:11 | MRI ---
MRI BRAIN NONCONTRAST: DATE: 02/09/2019 HISTORY: A 63-year-old male with a stroke. COMPARISON: MRI of 12/29/2018. FINDINGS: The previously demonstrated, numerous, then-acute or subacute, small infarctions in the left cerebral hemisphere and left thalamus no longer have restricted diffusion. Now, there are several new such patch areas in the left deep ryan nuclei and fewer such new small one s in the left cerebral hemisphere. The one in the left parietal brito radiata is probably a mixture of T2 shine-through and actual restricted diffusion. The lacunar infarction near the genu of the le ft internal capsule is probably actual restricted diffusion. The lacunar infarction slightly posteri or to that, in the lateral aspect of the left thalamus, more posteriorly, is probably T2 shine-throug h. The left temporal tip has now become a moderate-sized region of what appears to be encephalomalacia a nd gliosis (no restricted diffusion). That region of brain was completely normal on 12/29/2018. The ventricles are normal in size and configuration. No evidence of acute intraaxial hemorrhage. No mass effect, midline shift, or extraaxial fluid collection. IMPRESSION: 1. A moderate-sized region of encephalomalacia and gliosis (old insult) in the anterior left tempora l lobe, including the temporal tip. This happened rapidly, since the previous MRI. 2. Several new small, subacute infarctions, including lacunar infarctions, in the left middle cerebr al artery territory (including left deep ryan nuclei). RAJESH Villalobos POS: [facility]anna
[2019-02-09] MEDS ORDERED: Senokot S 8.6-50 MG TAB PO SCH (11:15)
--- NOTE | 2019-02-09 13:11 | PDOC.PN ---
- Subjective Encounter Start Date: 02/09/19 Encounter Start Time: 10:15 Subjective: Reports some right tinnitus, reports last BM was 4 days ago -: Still has problems with speech - Objective Resuscitation Status - Order Detail: 02/09/19 03:25 Resuscitation Status Routine Resuscitation Status: FULL: Full Resuscitation Vital Signs & Weight: Vital Signs (12 hours) Temp Pulse Pulse Pulse Resp BP BP 02/09/19 11:51 99.1 F 86 16 02/09/19 10:12 79 76 124/70 126/63 02/09/19 08:35 81 02/09/19 07:39 98.4 F 81 16 02/09/19 04:00 97.4 F L 80 16 BP Pulse Ox 02/09/19 11:51 123/68 92 L 02/09/19 10:12 02/09/19 08:35 02/09/19 07:39 125/66 94 L 02/09/19 04:00 117/68 94 L Weight Weight 98.997 kg I&O: 02/08/19 02/09/19 02/10/19 06:59 06:59 06:59 Intake Total 630 Output Total 350 Balance 630 -350 Phys Exam - Physical Examination HEENT: PERRLA Cardiovascular: RRR, no significant murmur Gastrointestinal: soft, non-tender, positive bowel sounds Mild discomfort to RUQ on deep palpation Musculoskeletal: no edema, pulses present Lymphatic: no nodes Psychiatric: normal affect, A&O x 3 Skin: cap refill <2 seconds Dx/Plan (1) Dysarthria Code(s): R47.1 - DYSARTHRIA AND ANARTHRIA Status: Acute (2) Depression Code(s): F32.9 - MAJOR DEPRESSIVE DISORDER, SINGLE EPISODE, UNSPECIFIED Status : Chronic (3) Gout Code(s): M10.9 - GOUT, UNSPECIFIED Status: Chronic (4) HTN (hypertension) Code(s): I10 - ESSENTIAL (PRIMARY) HYPERTENSION Status: Chronic (5) Ischemic cerebrovascular accident (CVA) Code(s): I63.9 - CEREBRAL INFARCTION, UNSPECIFIED Status: Chronic - Plan cont current plan of care, PT/OT, speech therapy PT/OT/Speech eval- has these set up as Outpt, Neuro consult pending -: MRI showed no new acute infarts, worsening malacia in temporal lobe -: Scarring to right TM, no S/S of infection -: Started meds for constipation, RUQ U/S pending, lipase pending -: May need ENT output visit for tinnitus if it continues * . Review of Systems - Review of Systems ENT: Other (Right tinnitis ) Gastrointestinal: Abdominal Pain (RUQ pain) Neurological: Change in Speech - Medications/Allergies Allergies/Adverse Reactions: Allergies Allergy/AdvReac Type Severity Reaction Status Date / Time No Known Allergies Allergy Verified 12/28/18 17:34 Medications: Current Medications Acetaminophen (Tylenol) 1,000 mg PO Q6H PRN PRN Reason: Mild Pain (1-3) Allopurinol (Zyloprim) 300 mg PO DAILY [facility] Last Admin: 02/09/19 08:35 Dose: 300 mg Amlodipine Besylate (Norvasc) 10 mg PO DAILY [facility] Last Admin: 02/09/19 08:35 Dose: 10 mg Aspirin (Ecotrin) 81 mg PO DAILY [facility] Last Admin: 02/09/19 08:35 Dose: 81 mg Atorvastatin Calcium (Lipitor) 80 mg PO [facility] Clopidogrel Bisulfate (Plavix) 75 mg PO DAILY [facility] Last Admin: 02/09/19 08:35 Dose: 75 mg Famotidine (Pepcid) 20 mg PO BID [facility] Last Admin: 02/09/19 08:35 Dose: 20 mg Hydralazine HCl (Apresoline) 10 mg SLOW IVP Q4H PRN PRN Reason: BP > 220/110 Labetalol HCl (Normodyne) 20 mg SLOW IVP Q1H PRN PRN Reason: BP > 220/110 Meclizine HCl (Antivert) 25 mg PO Q8HR [facility] Last Admin: 02/09/19 06:05 Dose: 25 mg Ondansetron HCl (Zofran Odt) 4 mg PO Q6H PRN PRN Reason: Nausea/Vomiting Ondansetron HCl (Zofran) 4 mg IVP Q6H PRN PRN Reason: Nausea/Vomiting Senna/Docusate Sodium (Senokot S) 1 tab PO BID [facility] Senna/Docusate Sodium (Senokot S) 1 tab PO NOW [facility] Stop: 02/09/19 13:15 Last Admin: 02/09/19 11:39 Dose: 1 tab Sodium Chloride (Flush - Normal Saline) 10 ml IVF PRN PRN PRN Reason: Saline Flush Venlafaxine HCl (Effexor Xr) 150 mg PO DAILY [facility] Last Admin: 02/09/19 08:35 Dose: 150 mg
--- NOTE | 2019-02-09 13:32 | ULT ---
Exam: Right upper quadrant ultrasound: HISTORY: Right upper quadrant abdominal pain COMPARISON: None FINDINGS: Liver: Within normal limits Gallbladder: Multiple echogenic foci are seen in the gallbladder lumen which demonstrate posterior sh adowing and are most compatible with multiple gallbladder calculi. There is evidence of a wall echo shadow. The gallbladder wall is thickened and edematous measuring 0.8 cm in thickness. No pericholecy stic fluid is apparent. Common bile duct: The common duct is normal in caliber measuring 0.4 cm in diameter. Pancreas: Mostly obscured by shadowing from bowel gas. Right kidney: Right kidney demonstrates a normal sonographic appearance. The right kidney measures 1 2.1 cm in length. IVC: The visualized IVC demonstrates a normal sonographic appearance. IMPRESSION: Cholelithiasis and thickened edematous gallbladder wall. Findings are suggestive of cholecystitis in the correct clinical scenario. No pericholecystic fluid is seen. The common duct is normal in caliber.
[2019-02-09] MEDS: Acetaminophen 500 MG TAB PO PRN (16:10)
--- NOTE | 2019-02-09 16:32 | RAD ---
CHEST ONE VIEW: 02/09/19 HISTORY: Hypoxia and fever. COMPARISON: None. FINDINGS: Lungs are mildly hypoinflated with vascular crowding. No focal or confluent air space consolidation, pneumothorax or effusion. No acute osseous abnormality. IMPRESSION: No acute intrathoracic abnormality. POS: HOME
[2019-02-09] MEDS ORDERED: Aggrenox 200-25mg CAP PO ONE (17:45)
[2019-02-09] MEDS: Senokot S 8.6-50 MG TAB PO SCH (20:18)
[2019-02-09] MEDS ORDERED: Atorvastatin Calcium 40 MG TAB PO SCH (21:00)
--- NOTE | 2019-02-10 01:16 | CON ---
DATE OF CONSULTATION: 02/09/2019 SURGEON: Dr. Lencho Ruffin. HISTORY OF PRESENT ILLNESS: The patient is a 63-year-old male who presented originally due to dizziness. The patient did complain of some right upper quadrant pain, which was new for him. He was further evaluated by the admitting service and was found to have gallbladder wall thickening and cholelithiasis. The patient has been tolerating a regular diet since that time. His last bowel movement was 4 days ago. Upon further discussions with the family, they did report that previous to the abdominal pain, the patient had had a rib eye steak which was a much fattier meal than he has been having recently since his CVAs in December. The patient denies nausea, vomiting, or diarrhea. Denies bloating as well. REVIEW OF SYSTEMS: All additional 10-point review of systems negative except as indicated above. PAST MEDICAL HISTORY: Recent CVA x2 in December, hypertension, hyperlipidemia, gout, alcohol use, and depression. PAST SURGICAL HISTORY: Hernia repair. SOCIAL HISTORY: The patient has a and daughter who are very involved in his care. He previously did drink alcohol regularly. Denied tobacco or drug use. MEDICATIONS: 1. Plavix. 2. Aspirin. 3. Atorvastatin. 4. Amlodipine. 5. Allopurinol. 6. Venlafaxine. ALLERGIES: NO KNOWN DRUG ALLERGIES. PHYSICAL EXAMINATION: VITAL SIGNS: Temperature 99.1, pulse 86, respirations 16, oxygen saturation 92% on room air, blood pressure 123/68. GENERAL: Well-appearing middle-aged male, sitting up in bed with no signs of acute distress. RESPIRATORY: Equal chest rise and fall. Clear breath sounds bilaterally. No signs of acute respiratory distress. CARDIAC: Regular rate and rhythm. No murmurs, gallops, or rubs. GASTROINTESTINAL: Soft, minimally tender in the right upper quadrant and nondistended. PELVIS: Stable to manipulation. No signs of trauma. EXTREMITIES: 2+ pulses in all extremities. No significant swelling noted. NEUROLOGIC: GCS Is 15. However, the patient does have expressive aphasia due to his recent stroke. The patient is able to understand clearly, but just cannot voice his ideas easily. LABORATORY FINDINGS: White count 4.6, hemoglobin 14.5, hematocrit 43.4, platelets 141. INR 1.0. Sodium 141, potassium 3.6, chloride 106, carbon dioxide 27, BUN 19, creatinine 0.94, glucose 109. Troponin less than 0.010. Total bilirubin 1.0, AST 21, ALT 29, alkaline phosphatase 103. DIAGNOSTIC FINDINGS: Ultrasound of the abdomen demonstrates cholelithiasis with thickened edematous gallbladder wall. Findings are suggestive of cholecystitis in the correct clinical scenario. No pericholecystic fluid is seen. The common bile duct is normal in caliber. ASSESSMENT: 1. Cholelithiasis with gallbladder wall thickening. 2. Minimal right upper quadrant tenderness with no other GI systems. PLAN: Dr. Ruffin and myself discussed the possibility of surgical intervention. However, due to the patient's minimal symptoms and his ability to tolerate a regular diet, Dr. Ruffin felt that it was not medically necessary to perform laparoscopic cholecystectomy at this time. The patient will have to be off his anticoagulation and anti-platelet therapy for several days after the operation in the risk of having another CVA outweighs the benefit of performing the procedure, especially in the setting that the patient tolerates regular diets that are not high in fat regularly. The patient's family states that they understand the recommendations and they agree with our plan. They reported that they will continue to monitor his diet and make modifications. If the patient was to become more symptomatic, we would proceed with a laparoscopic cholecystectomy at that time. The patient was seen and examined by Dr. Ruffin and myself this afternoon. Job ID: [id number]
[2019-02-10 05:38] LABS: Band 6 % (5-11); Hemoglobin 13.3 g/dL (14.0-18.0); Hypochromia SLIGHT = 6-15 cells (100X) (0-5/hpf); Lymphocytes 7 % (21-51); MDiff Complete? YES; Mean Corpuscular Hemoglobin 29.9 pg (27.0-31.0); Mean Corpuscular Volume 93.2 fL (78.0-98.0); Mean Platelet Volume 9.6 fL (7.4-10.4); Monocytes 5 % (0-10); Neutrophil 82 % (42-75); Platelet Count 128 thou/uL (130-400); Platelet Morphology Comment Appears Adequate; RBC Distribution Width 12.2 % (11.5-14.5); Red Blood Cell (RBC) Count 4.46 mill/uL (4.70-6.10); White Blood Cell (WBC) Count 10.8 thou/uL (4.8-10.8)
[2019-02-10 05:49] LABS: Anion Gap 13 mmol/L (10-20); BUN (Urea Nitrogen) 15 mg/dL (8.4-25.7); Calc. Creatinine Clearance 111 mL/min (70-130); Calcium 9.6 mg/dL (7.8-10.44); Carbon Dioxide 25 mmol/L (23-31); Cardiac Risk 2.1 (Less than 4.5); Chloride 101 mmol/L (98-107); Cholesterol 81 mg/dl (< 200 Desired); Estimated GFR-MDRD 78; Glucose 111 mg/dL (80-115); HDL Cholesterol 39 mg/dL (>60 Neg Risk); LDL Cholesterol, Calculated 30 mg/dL; Potassium 3.7 mmol/L (3.5-5.1); Sodium 135 mmol/L (136-145); Triglycerides 58 mg/dL (Less than 150)
[2019-02-10] MEDS: Meclizine HCl 25 MG TAB PO SCH ×2 (05:52→14:15)
[2019-02-10] MEDS: Amlodipine 10 MG TAB PO SCH (08:14)
[2019-02-10] MEDS: Senokot S 8.6-50 MG TAB PO SCH (08:14)
[2019-02-10] MEDS: Famotidine 20 MG TAB PO SCH (08:15)
[2019-02-10] MEDS: Allopurinol 300 MG TAB PO SCH (08:15)
[2019-02-10] MEDS: Venlafaxine HCl XR 150 MG CAP PO SCH (08:15)
[2019-02-10] MEDS: Aspirin 81 mg Enteric Coated Tablet PO SCH (08:15)
[2019-02-10 08:42] LABS: Bilirubin Negative (Negative); Blood, Urine Negative (Negative); Clarity CLEAR (Clear); Glucose, Urine (Dipstick) Negative (Negative); Leukocyte Negative (Negative); Nitrite Negative (Negative); Protein, Urine (Dipstick) Negative (Neg-Trace); Specific Gravity, Urine 1.022 (1.002-1.036); Urobilinogen 0.2 mg/dL (0.2-1.0); pH, Urine 5.5 (5.0-9.0)
[2019-02-10 08:44] LABS: Bacteria/HPF None Seen HPF (None Seen); Hyaline Casts/LPF 4-6 HYALINE CAST LPF (0-3 Hyaline); Pathc Cast-AUWi Flag 0.67 (0-2.49); Squamous Epithelial None Seen HPF (0-3)
[2019-02-10 08:54] LABS: Urine Culture Reflex Yes Yes
[2019-02-10] MEDS ORDERED: Aggrenox 200-25mg CAP PO SCH (09:00)
[2019-02-10 15:47] VITALS: BP 118/67; TEMP 98.2
[2019-02-10] MEDS: Acetaminophen 500 MG TAB PO PRN (16:05)
--- NOTE | 2019-02-10 23:00 | CON ---
DATE OF CONSULTATION: 02/10/2019 CONSULTING PHYSICIAN: Hospitalist Service. IMPRESSION: 1. Silent new ischemia in the left parietal region. 2. Vertigo. 3. Recent stroke with some residual expressive aphasia. 4. Aspirin and Plavix failure. PLAN: 1. Aggrenox one twice a day. 2. Continue low-dose aspirin. 3. Office followup. 4. Prednisone 40 mg a day for 3 days. 5. Antivert as needed. HISTORY OF PRESENT ILLNESS: Mr. Brizuela is a 63-year-old man, who had a stroke last month. He started becoming dizzy and vertiginous. He came into the hospital for evaluation. His MRI of the brain did not show any ischemia in the posterior fossa, but there were some new punctate areas of ischemia in the left middle cerebral artery territory. He had a known left ICA-MCA stenoses. These were nonsurgical. He was seen by Dr. Reich last month. His echocardiogram showed a 50% to 55% ejection fraction. He is feeling better. Other than this, he has been a bit down and depressed. He was started on Effexor following the stroke. PAST MEDICAL HISTORY: Hypertension, gout, stroke. ALLERGIES: NONE. SOCIAL HISTORY: No tobacco use. FAMILY HISTORY: Noncontributory. MEDICATIONS: Medication list was reviewed. REVIEW OF SYSTEMS: Ten-system review of systems is otherwise negative. PHYSICAL EXAMINATION: GENERAL: He is a healthy-appearing middle-aged man, lying in bed, in no distress. VITAL SIGNS: Blood pressure 118/67, pulse 84, respirations 16, and temperature 98.2. HEENT: Pupils equal and reactive. Conjunctivae clear. Oropharynx clear. There is some mild end-gaze nystagmus present. NECK: Supple. No lymphadenopathy. EXTREMITIES: No cyanosis or edema. NEUROLOGIC: He is alert and cooperative. His speech is clear, but there is some notable word-finding difficulty. Cranial nerves are intact. Motor exam showed equal strength. There is no fix or drift. No tremor. Dysmetria is present. Sensation is intact to touch. Gait is not tested. LABORATORY STUDIES: Include CBC and serum chemistries, which were unremarkable. His cholesterol ratio was 2.1. SUMMARY: Mr. Brizuela is recovering from acute attack of vertigo. 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 Hopefully, this will settle down in a few days with steroids. Given his new silent ischemic injury, I would go ahead and change him over to Aggrenox. I will follow up with him in the office. Job ID: [id number]
[2019-02-12] MEDS ORDERED: Aggrenox 200-25mg CAP PO SCH (09:00)
== END 2019-02-10 18:33 | disposition home or self-care (01) ==
LOC: ERS 20:08 → 2SE 21:59
PROVIDERS: ADMIT Family Medicine; ATTEND Family Medicine
DX: I67.82 Cerebral ischemia (principal); R47.01 Aphasia; R42 Dizziness and giddiness; I65.22 Occlusion and stenosis of left carotid artery; I10 Essential (primary) hypertension; E78.5 Hyperlipidemia, unspecified; M10.9 Gout, unspecified; F32.9 Major depressive disorder, single episode, unspecified; Z79.82 Long term (current) use of aspirin; Z79.899 Other long term (current) drug therapy
CPT/HCPCS: 36415; 70551; 71045; 76705; 80048; 80061; 81001; 83605; 83690; 85007; 85027; 87040; 87086; 93005; 96360; 96361; G0378; J8597